=== PATIENT | male | born 1935 | race Caucasian/White ===

== ENCOUNTER 2017-02-17 17:35 | Emergency (ER) | payer MEDICARE, BC ==
[~2017-02-17] VITALS: Ht 168.9 cm; Wt 70.8 kg
[~2017-02-17 17:35] MED LIST: BLOO-125; CILO100T PO; GABA-336 PO; INSU100V12 SQ; INSU200I SQ; METO5TAB2 PO; NEOM28OI18 TOP; SERT50TA12 PO; SIMV40TA5 PO
[2017-02-17 17:40] VITALS: Ht 168.9 cm; Wt 70.8 kg
--- OUTSIDE RECORDS SUMMARY | 2017-02-17 17:40 | XMS REPORT | Continuity of Care Document ---
Author Author [facility] Organization [facility] Address Unknown Phone Unavailable Support Name Relationship Address Phone Berto COHN Caregiver [address] [place] [address] Unavailable FEBRUARYJ LUIS DO Caregiver [address] [place] [address] Unavailable JB MAIER Next Of Kin [address] [place], [place] [id number] Insurance Providers Guarantor Jean Claude Maier Address [address] [place] [address] Email DENIED TO PT PORTAL [facility] Policy Number [id number] Subscriber's Name Jean Claude Maier Relationship 18 Self Group Number [id number] Effective Date 08 Payer Medicare Policy Number [id number] Subscriber's Name Jean Claude Maier Relationship 18 Self Effective Date 02 Advance Directives Directive Response Recorded Date/Time Advanced Directives Type None 09/01/16 2:40pm Chief Complaint and Reason for Visit Chief Complaint Syncope Reason for Visit Pre-syncope Problems Past Problems Medical Problem Onset Date Callous ulcer Unknown Pre-syncope Unknown Medications Current Home Medications Medication Dose Units Route Directions Days Qty Instructions Start Date Blood Sugar Diagnostic (One Touch Ultra Test Strips) 1 Each Strip 1 Strip Six Times A Day 09/01/16 Cilostazol 100 Mg Tablet 50 Mg Oral Twice A Day 09/01/16 Gabapentin 100 Mg Capsule 100 Mg Oral Twice A Day 09/01/16 Insulin Detemir (Levemir) 100 Unit/Ml Inj 8 Unit Sub-Q Twice A Day 09/01/16 Insulin Lispro (Humalog Kwikpen) 200 Unit/1 Ml Insuln.pen 5 Sub-Q Three Times Daily With Meals 09/01/16 Metoclopramide Hcl 5 Mg Tablet 5 Mg Oral Q6h/0300,0900,1500,2100 09/01/16 Neomy Sulf/Bacitrac Zn/Poly (Triple Antibiotic Ointment) 28 Gm Oint...g. 1 Applic Topically Twice A Day 7 Days [address] Slick Melgoza Telephonic Rn [facility] [address] [facility] [phone] 08/13/16 Sertraline Hcl (Sertraline) 50 Mg Tablet 50 Mg Oral Daily Simvastatin 40 Mg Tablet 40 Mg Oral Bedtime Take 1 tablet, by mouth , 1 time a day (at BEDTIME). 09/01/16 Social History Social History Problem Response Recorded Date/Time Onset Date Status Chewing Tobacco Status No 09/01/2016 3:31pm Not Applicable Not Applicable Hx Alcohol Use No 09/01/2016 3:31pm Not Applicable Not Applicable Query Response Start Date Stop Date Smoking Status Never smoker Hospital Discharge Instructions No hospital discharge instructions. Plan of Care Discharge Date 09/01/16 4:44pm Disposition 01 DISCHARGED HOME, SELF-CARE Condition at Discharge Stable Instructions/Education Provided DI for Syncope in Adults (Fainting) Prescriptions See Medication Section Referrals [facility] Address: [address] [place] [id number] Additional Instructions/Education Your labs look good today. I do want you to go home and make sure you are drinking plenty of fluids. Try to get some rest this evening and dont do much work that is very strenuous. If you should have return of any symptoms then return to ER. Care Plan and Goals Physician Care Plan Problem:Pre syncopal episode. Goal: Follow up with primary care provider Instructions: Take medications and follow care plan as discussed/written Functional Status No functional status results. Allergies, Adverse Reactions, Alerts No known allergies. Immunizations No immunization records. Vital Signs Acute Vital Signs Vital Response Date/Time Temperature (Fahrenheit) 98.0 deg F (96.8 - 99.1) 09/01/2016 2:40pm Temperature (Calculated Celsius) 36.40454 degrees C (36.0 - 37.3) 09/01/2016 2:40pm Pulse Rate (adult) 59 bpm (60 - 100) 09/01/2016 4:44pm Respiratory Rate 19 breaths/min (10 - 20) 09/01/2016 4:44pm O2 Sat by Pulse Oximetry 98 % (90 - 100) 09/01/2016 4:44pm Blood Pressure 171/74 mm Hg 09/01/2016 4:44pm Height (Feet) 5 feet 09/01/2016 2:40pm Height (Inches) 7.00 inches 09/01/2016 2:40pm Weight (Kilograms) 70.200 kg 09/01/2016 2:40pm Body Mass Index (BMI) 24.0 09/01/2016 2:40pm Results Laboratory Results Test Name Result Units Flags Reference Collection Date/Time Result Date/ Time Comments White Blood Count 6.7 T/MM3 4.5-11.0 09/01/2016 2:18pm 09/01/2016 3: 05pm Red Blood Count 3.63 M/MM3 L 4.50-5.90 09/01/2016 2:18pm 09/01/2016 3: 05pm Hemoglobin 12.2 GM/DL L 13.5-17.5 09/01/2016 2:18pm 09/01/2016 3:05pm Hematocrit 35.6 % L 41-53 09/01/2016 2:18pm 09/01/2016 3:05pm Mean Corpuscular Volume 98.1 UM3 80-100 09/01/2016 2:18pm 09/01/2016 3: 05pm Mean Corpuscular Hemoglobin 33.6 UUG 26-34 09/01/2016 2:18pm 2015 3:05pm Mean Corpuscular Hemoglobin Concent 34.3 GM/DL 31-37 09/01/2016 2:18pm 09/01/2016 3:05pm RDW Standard Deviation 42.9 FL 36.9-50.2 09/01/2016 2:18pm 09/01/2016 3 :05pm Platelet Count 207 T/MM3 130-400 09/01/2016 2:18pm 09/01/2016 3:05pm Mean Platelet Volume 10.9 UM3 9.4-12.4 09/01/2016 2:18pm 09/01/2016 3: 05pm Neutrophils (%) (Auto) 55.4 % 33-66 09/01/2016 2:18pm 09/01/2016 3: 05pm Lymphocytes (%) (Auto) 31.3 % 23-45 09/01/2016 2:18pm 09/01/2016 3: 05pm Monocytes (%) (Auto) 11.5 % H 0-9.0 09/01/2016 2:18pm 09/01/2016 3:05pm Eosinophils (%) (Auto) 1.0 % 0-4 09/01/2016 2:18pm 09/01/2016 3:05pm Basophils (%) (Auto) 0.7 % 0-2 09/01/2016 2:18pm 09/01/2016 3:05pm Immature Granulocyte % (Auto) 0.1 % 0.0-0.5 09/01/2016 2:18pm 2015 3:05pm Absolute Neutrophils (auto) 3.7 T/MM3 1.8-7.7 09/01/2016 2:18pm 2015 3:05pm Absolute Lymphocytes (auto) 2.1 T/MM3 1-4.8 09/01/2016 2:18pm 2015 3:05pm Absolute Monocytes (auto) 0.8 T/MM3 0-0.8 09/01/2016 2:18pm 09/01/2016 3:05pm Absolute Eosinophils (auto) 0.1 T/MM3 0-0.5 09/01/2016 2:18pm 2015 3:05pm Absolute Basophils (auto) 0.1 T/MM3 0-0.2 09/01/2016 2:18pm 09/01/2016 3:05pm Absolute Immature Granulocyte (auto 0.01 T/MM3 0.00-0.03 09/01/2016 2: 18pm 09/01/2016 3:05pm Icterus Index < 2 0-7 09/01/2016 2:18pm 09/01/2016 3:04pm Chemistry Specimen Hemolysis < 15 0-25 09/01/2016 2:18pm 09/01/2016 3 :04pm 0-25: Specimen Exhibited No Hemolysis. Turbidity < 20 0-20 09/01/2016 2:18pm 09/01/2016 3:04pm Sodium Level 137 MEQ/L 134-144 09/01/2016 2:18pm 09/01/2016 3:09pm Potassium Level 4.0 MEQ/L 3.6-5 09/01/2016 2:18pm 09/01/2016 3:09pm Chloride Level 99 MEQ/L 98-107 09/01/2016 2:18pm 09/01/2016 3:09pm Carbon Dioxide Level 27 MEQ/L 22-30 09/01/2016 2:18pm 09/01/2016 3: 09pm Anion Gap 11 MEQ/L 5-15 09/01/2016 2:18pm 09/01/2016 3:09pm Blood Urea Nitrogen 26.0 MG/DL H 9-20 09/01/2016 2:18pm 09/01/2016 3: 09pm Creatinine 1.0 MG/DL 0.8-1.5 09/01/2016 2:18pm 09/01/2016 3:09pm BUN/Creatinine Ratio 26 RATIO 6-26 09/01/2016 2:18pm 09/01/2016 3:09pm Glomerular Filtration Rate Calc 72 09/01/2016 2:18pm 09/01/2016 3: 09pm Glucose Level 183 MG/DL H 75-110 09/01/2016 2:18pm 09/01/2016 3:09pm Calculated Osmolality 274 MOSM/KG 261-280 09/01/2016 2:18pm 09/01/2016 3:09pm Calcium Level 9.2 MG/DL 8.4-10.2 09/01/2016 2:18pm 09/01/2016 3:09pm Troponin I < 0.012 ng/ml 0-0.12 09/01/2016 2:18pm 09/01/2016 3:22pm Troponin values with a difference of 55% increase from orginal troponin value represent a true biological DELTA value. (%increase Calc=Orginal Troponin value, divided by subsequent Troponin value, multiplied by 100) Urine Collection Type CLEANCATCH-MIDSTREAM 09/01/2016 4:01pm 2015 4:09pm Urine Color YELLOW YELLOW 09/01/2016 4:01pm 09/01/2016 4:09pm Urine Turbidity CLEAR CLEAR 09/01/2016 4:01pm 09/01/2016 4:09pm Urine Specific [place] 1.025 1.015-1.025 09/01/2016 4:01pm 2015 4:09pm Urine pH 6.0 5.0-8.0 09/01/2016 4:01pm 09/01/2016 4:09pm Urine Leukocyte Esterase NEGATIVE NEGATIVE 09/01/2016 4:01pm 2015 4:09pm Urine Nitrite NEGATIVE NEGATIVE 09/01/2016 4:01pm 09/01/2016 4:09pm Urine Protein NEGATIVE NEGATIVE 09/01/2016 4:01pm 09/01/2016 4:09pm Urine Glucose (UA) 3+ A NEGATIVE 09/01/2016 4:01pm 09/01/2016 4:09pm Urine Ketones NEGATIVE NEGATIVE 09/01/2016 4:01pm 09/01/2016 4:09pm Urine Urobilinogen 0.2 EU/DL NORMAL 09/01/2016 4:01pm 09/01/2016 4: 09pm Urine Bilirubin NEGATIVE NEGATIVE 09/01/2016 4:01pm 09/01/2016 4: 09pm Urine Blood TRACE-INTACT A NEGATIVE 09/01/2016 4:01pm 09/01/2016 4: 09pm Urinalysis Comment MICROSCOPIC NOT IND. 09/01/2016 4:01pm 2015 4:09pm Procedures No known history of procedures. Encounters Encounter Location Arrival/Admit Date Discharge/Depart Date Attending Provider Departed Emergency Room [facility] 09/01/16 2:39pm 09/01/16 4: 44pm J LUIS TRACY DO Departed Emergency Room [facility] 08/13/16 10:28am 08/13/16 11: 11am JETT BAUTISTA APRN Recent Diagnosis
--- NOTE | 2017-02-17 17:44 | ERPDOC ---
Departure Disposition Decision Date: Feb 17, 2017 Disposition Decision Time: 19:13 Disposition: 01 DISCHARGED HOME, SELF-CARE Impression Impression Impression: Primary Impression: Hypoglycemia Severity: Moderate Condition: Improved Seen By: Mid-level only Referrals: Berto ÁLVAREZ (Family) Patient Instructions: Hypoglycemia in a Person with Diabetes (ED) Problems/Meds/Labs Reviewed?: Yes Medications reviewed and manag: Yes Additional Instructions: You labs do not show any sign of infection or illness. Stay well hydrated. Eat frequent small meals with protein, carbohydrate and fat. Keep appointment with Dr. Álvarez next week as schedule. Follow up care ordered?: Yes Mental Status: Alert, Oriented HPI - General Medical General Stated Complaint: CONFUSION Time Seen by Provider: 17:43 Source: patient, family () HPI - General Medical Initial Comments 81 YO M brought to ED by after patient had low blood sugar and confusion. Patient had his car stopped in the middle of the road and EMS was called according to . When EMS arrived patient was confused. They checked his blood sugar and it was 34. 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 EMS gave patient an amp of [id number]. When EMS checked patient's lunch box he had 1/2 sandwich in lunch box so they had him eat it. Patient refused to have EMS bring to ED for evaluation and wanted his called. Patient is improved according to since she picked him up. states patient's confusion has improved. Patient is concerned because he cannot remember much about EMS taking care of him. Patient denies fever, chills, SOB, CP, abdominal pain, hemiparesis, ataxia or slurred speech. Patient admits to recent runny nose and mild nonproductive, dry cough. Duration: 1-3 hrs Associated Symptoms: DENIES: chest pain, cough, diaphoresis, fever/chills, headaches, loss of appetite, malaise, nausea/vomiting, rash, seizure, shortness of breath, syncope, weakness Allergies: Coded Allergies: No Known Allergies (Unverified , 02/17/17) Past History Past Medical History Metabolic: diabetes, hypercholesterolemia Cardiac: CAD Respiratory: DENIES: COPD, asthma GI: DENIES: ulcers Male: DENIES: renal insufficiency Neurological: DENIES: CVA, TIA, seizures Musculoskeletal: DENIES: back pain, neck pain Hematologic: DENIES: anemia Psychological: DENIES: depression Surgical History Cardiac: cardiac bypass Family History Family PMH: FOUND: other (noncontributory) Social History Second Hand Exposure: No Marital Status: Sexuality: female partner Household Members: spouse Current Occupational Status: retired Review of Systems Constitutional Constitutional: DENIES: chills, dizziness, fever, weakness Eyes General: DENIES: erythema, exudate Lids/Accessories: DENIES: erythema, swelling Vision: DENIES: blurring ENMT Ears: DENIES: pain Sinuses: rhinorrhea, DENIES: congestion Mouth/Throat: DENIES: sore throat Cardiovascular Cardiac: DENIES: chest pain, murmur Rhythm/Rate: DENIES: palpitations Pulmonary Respiratory: cough (nonproductive), DENIES: dyspnea GI Upper Abdomen: DENIES: nausea, pain, vomiting Lower Abdomen: DENIES: blood in stool, diarrhea, pain General: DENIES: dysuria, pain Musculoskeletal General: DENIES: joint pain, pain, tenderness Integumentary Skin: DENIES: color change, itching, rash Neurological General: DENIES: ataxia, change in strength, headache, numbness, paralysis/ paresis, weakness Psychiatric Psychiatric: DENIES: anxiety, depression, nervousness Physical Exam General General Nourishment: well nourished, well developed, no acute distress, adult General Body Habitus: well groomed Vitals and Pain Weight: Kilograms: Height (feet): 5 Height (inches): 7.00 Triage Pain Scale: Eyes (brief) Eyes Brief: found: EOMI, PERRL ENMT (brief) ENMT Brief: FOUND: TM clear, TM good light reflex, mucosa moist, NOT FOUND: nasal exudate, nasal swelling, pharnyx erythema Neck (brief) Neck: FOUND: trachea midline, NOT FOUND: adenopathy, spasm, tenderness, thyromegaly Respiratory (brief) Respiratory: FOUND: clear all troncoso, equal bilaterally, symmetrical Cardiovascular (brief) Cardiac: FOUND: regular rate, regular rhythm Capillary Refill: <2 sec Pulses: all distal extremities, equal, strong Abdomen (brief) Abdominal Brief: FOUND: bowel normo active x4, soft, NOT FOUND: distended, tender Musculoskeletal (brief) Musculoskeletal Brief: NOT FOUND: deformity, tenderness Integumentary (brief) Integumentary Brief: FOUND: dry, pink, warm Neurologic (brief) Neurological Brief: FOUND: CN w/o gross def to obs Neurologic Mental Status: FOUND: alert, oriented (x3) Cranial Nerves: NOT FOUND: facial asymmetry Motor : Motor Side: bilateral Motor Location: foot extension, foot flexion, 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 Motor Degree: 5 Sensation: FOUND: soft touch intact x4 ext Cerebellar: FOUND: tandem walk DTR's : DTR Location: Triceps, Patellar DTR Grade: 2+ Psychiatric (brief) Psychiatric Brief: FOUND: normal affect Differential Diagnoses Considering: Acute NC, CVA, Hypo/Hyperglycemia, Hypo/Hypernatremia, Medication Effect, Metabolic, TIA, UTI Progress Results/Orders Orders Procedure Category Date Status Time Cmp - Comprehensive LAB 02/17/17 Complete Metabolic Cbc W/Auto LAB 02/17/17 Complete Diff-Reflex Manual Ua, Dip Wreflex LAB 02/17/17 Complete Microsc & Medical Detail Representative 17:53 Lab Results Laboratory Tests Test 02/17/17 17:44 02/17/17 18:15 02/17/17 18:23 02/17/17 18:48 Glucometer 209mg/dL 232mg/dL White Blood Count 10.4T/MM3 Red Blood Count 3.81M/MM3 Hemoglobin 12.9GM/DL Hematocrit 38.0% Mean Corpuscular Volume 99.7UM3 Mean Corpuscular Hemoglobin 33.9UUG Mean Corpuscular Hemoglobin Concent 33.9GM/DL RDW Standard Deviation 44.5FL Platelet Count 153T/MM3 Mean Platelet Volume 11.8UM3 Immature Granulocyte % (Auto) 0.2% Neutrophils (%) (Auto) 84.3% Lymphocytes (%) (Auto) 8.5% Monocytes (%) (Auto) 6.6% Eosinophils (%) (Auto) 0.1% Basophils (%) (Auto) 0.3% Absolute Immature Granulocyte (auto 0.02T/MM3 Absolute Neutrophils (auto) 8.8T/MM3 Absolute Lymphocytes (auto) 0.9T/MM3 Absolute Monocytes (auto) 0.7T/MM3 Absolute Eosinophils (auto) 0.0T/MM3 Absolute Basophils (auto) 0.0T/MM3 Turbidity < 20 Sodium Level 138MEQ/L Potassium Level 4.5MEQ/L Chloride Level 99MEQ/L Carbon Dioxide Level 29MEQ/L Anion Gap 10MEQ/L Blood Urea Nitrogen 26.0MG/DL Creatinine 1.0MG/DL Glomerular Filtration Rate Calc 72 BUN/Creatinine Ratio 26RATIO Glucose Level 268MG/DL Calculated Osmolality 280MOSM/KG Calcium Level 9.2MG/DL Total Bilirubin 0.50MG/DL Icterus Index < 2 Aspartate Amino Transf (AST/SGOT) 35U/L Alanine Aminotransferase (ALT/SGPT) 34U/L Alkaline Phosphatase 67U/L Total Protein 6.6G/DL Albumin 4.1G/DL Globulin 2.5G/DL Albumin/Globulin Ratio 1.6RATIO Chemistry Specimen Hemolysis < 15 Urine Collection Type Voided-not cc-midstr Urine Color Yellow Urine Turbidity Clear Urine pH 5.0 Urine Specific [place] 1.020 Urine Protein Negative Urine Glucose (UA) 2+ Urine Ketones 1+ Urine Blood Negative Urine Nitrite Negative Urine Bilirubin Negative Urine Urobilinogen 0.2EU/DL Urine Leukocyte Esterase Negative Urinalysis Comment Microscopic not ind. Progress Progress I offered labs to who agreed. Will hold off on CT of head at this time since mild confusion is consistent with BS of 34 and resolved with treatment. Labs unremarkable except for BUN 26 which may be patient's baseline or indicate volume depletion. Patient has 1+ ketones in urine and 2+ glucose in urine. Patient is back to his baseline at this time. I discussed labs with patient and his and answered questions. Patient and his verbalized under under of treatment plan, close follow up with PCP and return precautions. CECI MICHELE APRN Feb 17, 2017 17:44
--- NOTE | 2017-02-17 17:46 | NUR ---
GERRI MICHELE APRN AT BEDSIDE.
--- NOTE | 2017-02-17 17:57 | NUR ---
GERRI MICHELE APRN AT BEDSIDE. AT BEDSIDE WELL.
[2017-02-17] MEDS ORDERED: ASPI81TA2 PO (17:59)
[2017-02-17] MEDS ORDERED: RUTI1TAB2 PO (18:00)
[2017-02-17] MEDS ORDERED: CALC-1072 PO (18:00)
--- NOTE | 2017-02-17 18:02 | NUR ---
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
[2017-02-17 18:21] LABS: BASOPHILS % (AUTO) 0.3 % (0-2); EOSINOPHILS % (AUTO) 0.1 % (0-4); HGB - HEMOGLOBIN 12.9 GM/DL (13.5-17.5); IMMATURE GRANULOCYTE # (AUTO) 0.02 T/MM3 (0.00-0.03); IMMATURE GRANULOCYTE % (AUTO) 0.2 % (0.0-0.5); LYMPHOCYTES # (AUTO) 0.9 T/MM3 (1-4.8); LYMPHOCYTES % (AUTO) 8.5 % (23-45); MEAN CORPUSCULAR HGB 33.9 UUG (26-34); MEAN CORPUSCULAR HGB CONC(MCHC 33.9 GM/DL (31-37); MEAN CORPUSCULAR VOLUME 99.7 UM3 (80-100); MEAN PLATELET VOLUME 11.8 UM3 (9.4-12.4); MONOCYTES # (AUTO) 0.7 T/MM3 (0-0.8); MONOCYTES % (AUTO) 6.6 % (0-9.0); NEUTROPHILS #(AUTO)-ABSOLUTE 8.8 T/MM3 (1.8-7.7); NEUTROPHILS % (AUTO) 84.3 % (33-66); RED BLOOD COUNT 3.81 M/MM3 (4.50-5.90); WBC - WHITE BLOOD COUNT 10.4 T/MM3 (4.5-11.0)
[2017-02-17 18:29] LABS: ALBUMIN 4.1 G/DL (3.5-5.0); ALBUMIN/GLOBULIN RATIO 1.6 RATIO (1.1-2.2); ALKALINE PHOSPHATASE 67 U/L (38-126); ALT (SGPT) 34 U/L (21-72); ANION GAP 10 MEQ/L (5-15); AST (SGOT) 35 U/L (17-59); BUN/CREATININE RATIO 26 RATIO (6-26); CALCIUM 9.2 MG/DL (8.4-10.2); CHLORIDE 99 MEQ/L (98-107); CO2 - CARBON DIOXIDE 29 MEQ/L (22-30); GLOMERULAR FILTRATION RATE 72; GLUCOSE 268 MG/DL (75-110); POTASSIUM 4.5 MEQ/L (3.6-5); SODIUM 138 MEQ/L (134-144); TOTAL PROTEIN 6.6 G/DL (6.3-8.2)
[2017-02-17 18:36] LABS: BLOOD, URINE NEGATIVE (NEGATIVE); COLOR,URINE YELLOW (YELLOW); LEUKOCYTE ESTERASE ,URINE NEGATIVE (NEGATIVE); NITRITE,URINE NEGATIVE (NEGATIVE); UROBILINOGEN,URINE 0.2 EU/DL (NORMAL)
--- NOTE | 2017-02-17 19:05 | NUR ---
GERRI MICHELE APRN AT BEDSIDE.
[2017-02-17 19:22] VITALS: BP 163/70; PULSE 66; RESP 12; TEMP 97.7; O2SAT 100
== END 2017-02-17 19:22 | disposition home or self-care (01) ==
LOC: ED 17:35
DX: E11.649 Type 2 diabetes mellitus with hypoglycemia without coma (principal); Z79.4 Long term (current) use of insulin
CPT/HCPCS: 36415; 80053; 81003; 82948; 85025